=== PATIENT | female | born 1990 | race Caucasian/White ===

== ENCOUNTER 2022-10-17 18:57 | Emergency (ER) | payer BC ==
--- OUTSIDE RECORDS SUMMARY | 2022-10-17 19:00 | XMS REPORT | Continuity of Care Document ---
:1990 Author Organization [facility] t Address [address] [place] [address] [address]. [address] [place] [address] Care Team Providers Name Role Phone Pcp, Patient Does Not Have A Primary Care Physician [id number] THANH GOODMAN Attending Clinician Unavailable Doctor Unassigned, [place] Attending Clinician Unavailable Thanh Goodman MD Attending Clinician Yvette Stallworth PA-C Attending Clinician Unknown, Attending Attending Clinician Unavailable UNKNOWN, ATTENDING Attending Clinician Unavailable Wilfred Whitehead DO Attending Clinician Payers Payer Name Policy Type Policy Number Effective Date Expiration Date S ourcharlene [facility] - [id number] 2014 00:00:00 OUT OF STATE Problems Condition Condition Condition Status Onset Resolution Last Treating Co mments Source Name Details Category Date Date Treatment Clinician Date No known No known Disease Unive rs active active ity of problems problems [facility] [place] Allergies, Adverse Reactions, Alerts Allergy Allergy Status Severity Reaction(s) Onset Inactive Treating Comm ents Source Name Type Date Date Clinician NO KNOWN Drug Active Univers ALLERGIE Class ity of S [facility] [place] Social History Social Habit Start Date Stop Date Quantity Comments Source History SDOH University o f Alcohol Frequency [place] [facility] History SDOH University o f Alcohol Std [place] [facility] Drinks [facility] History SDWY University o f Alcohol Binge [place] [facility] Exposure to Not sure University of SARS-CoV-2 [place] [facility] (event) [facility] Alcohol intake 2021-11-06 2021-11-06 Current drinker Unive rsity of 00:00:00 00:00:00 of alcohol [place] [facility] (finding) [facility] Alcohol Comment 2021-09-19 2021-09-19 occasional Universit y of 00:00:00 00:00:00 [facility] Tobacco use and 2020-11-04 2020-11-04 Smokeless tobacco Un iversity of exposure 00:00:00 00:00:00 non-user [facility] Sex Ass[birth year] Universit y of 00:00:00 00:00:00 [facility] Smoking Status Start Date Stop Date Source Never smoked tobacco [facility] Medications Ordered Filled Start Stop Current Ordering Indication Dosage Frequency Signature Comments Components Source Medication Medication Date Date Medication? Clinician (SIG) Name Name hydrOXYzine 2020-11- No Unive rs 10 mg 12-07 ity of tablet 00:00: 00:00 [place] 00 :00 Medical Branch hydrOXYzine 2020-11- No Unive rs 10 mg 12-07 ity of tablet 00:00: 00:00 [place] 00 :00 [facility] propranoloL 2020-11- No Unive rs 10 mg 12-02 ity of tablet 00:00: 00:00 [place] 00 :00 [facility] propranoloL 2020-2021- No Unive rs 10 mg 12-02 ity of tablet 00:00: 00:00 [place] 00 :00 Medical [facility] fluconazole 2020-2021- No Unive rs 150 mg 11-19 ity of tablet 00:00: 00:00 [place] 00 :00 Medical [facility] fluconazole 2020-2021- No Unive rs 150 mg 11-19 ity of tablet 00:00: 00:00 [place] 00 :00 Medical [facility] clonazePAM 2020-11- No Univer s 0.25 mg 0-03 -06 ity of disintegrat 00:00: 00:00 [place] ing tablet 00 :00 Medical Branch clonazePAM 2020-11- No Univer s 0.25 mg 0-03 -06 ity of disintegrat 00:00: 00:00 [place] ing tablet 00 :00 Medical Branch methylpheni Yes Univer s date HCl 54 9-07 ity of mg 24 hr 00:00: [place] tablet 00 Medical [facility] methylpheni 0 Yes Univer s date HCl 54 9-07 ity of mg 24 hr 00:00: [place] tablet 00 [facility] methylpheni Yes Univer s date HCl 54 07-08 ity of mg 24 hr 00:00: [place] tablet 00 Medical Branch citalopram Yes Univers 40 mg 9- ity of tablet 00:00: [place] [facility] citalopram Yes Univers 40 mg - ity of tablet 00:00: Medical Branch citalopram Yes Univers 40 mg 9- ity of tablet 00:00: [place] 00 [facility] Immunizations Ordered Filled Immunization Date Status Comments Sourc e Immunization Name Name Influenza Virus 2021-08-01 Completed Universit y of Vaccine 00:00:00 [facility] Influenza Virus 2021-08-01 Completed Universit y of Vaccine 00:00:00 [facility] Influenza Virus 2021-08-01 Completed Universit y of Vaccine 00:00:00 [facility] Vital Signs Vital Name Observation Time Observation Value Comments Source Systolic blood 2021-11-06 15:10:00 103 mm[Hg] Univer sity of pressure [facility] Diastolic blood 2021-11-06 15:10:00 67 mm[Hg] Unive rsity of pressure [facility] Heart rate 2021-11-06 15:10:00 82 /min [facility] Body temperature 2021-11-06 15:10:00 36.72 Priscilla [facility] Respiratory rate 2021-11-06 15:10:00 20 /min [facility] Body height 2021-11-06 15:10:00 170.2 cm [facility] Body weight 2021-11-06 15:10:00 157.001 kg [facility] BMI 2021-11-06 15:10:00 54.21 kg/m2 [facility] Procedures Procedure Date / Time Performed Performing Clinician Sour e CONSENT TO CONTACT 2022-06-08 14:49:10 Doctor Unassigned, No Uni versity of [place] FOR VOLUNTARY Name [facility] RESEARCH Encounters Start End Encounter Admission Attending Care Care Encounter Source Date/Time Date/Time Type Type Clinicians Facility Department ID 2022-11-09 2022-11-09 Outpatient THANH WYNNE [facility] [id number] Univers 09:00:00 09:00:00 ity of [facility] 2022-06-08 2022-06-08 Orders Doctor ELMER [id number] [id number] Univers 00:00:00 00:00:00 Only Unassigned, ORI [id number] ity of [place] [facility] [id number] [place] [id number] [facility] 009 Branch 2021-11-06 2021-11-06 Office FishThanh [facility] 1.2.840.114 [id number] Univers 09:00:00 09:41:52 Visit CHAYO [id number] it y of [place] [id number] [facility] [id number] [facility] [address] [place] 2021-11-06 2021-11-06 Outpatient R THANH GOODMAN [facility] [id number] Univers 09:00:00 09:41:52 ity of [facility] 2021-11-06 2021-11-06 Outpatient R THANH GOODMAN [facility] [id number] Univers 09:00:00 09:00:00 ity of [facility] 2021-11-04 2021-11-04 Outpatient R THANH GOODMAN [facility] [id number] Univers 10:00:00 10:00:00 ity of [facility] 2021-09-19 2021-09-19 Outpatient R THANH GOODMAN [facility] [id number] Univers 10:00:00 11:09:01 ity of [facility] 2021-09-19 2021-09-19 Office Thanh Goodman [facility] 1.2.840.114 [id number] Univers 09:48:49 11:09:01 Visit GE[place] [id number] [id number] [id number] V[facility] [address] 2021-09-19 2021-09-19 Outpatient R RAFAT THANH [facility] [id number] Univers 10:00:00 10:00:00 ity of [facility] 2021-09-18 2021-09-18 Telephone FishThanh [facility] [id number] Univers 00:00:00 00:00:00 [place] [id number] it [id number] [id number] [facility] [address] [place] 2021-07-13 2021-07-13 Telephone Basim [facility] 1.2.840.114 [id number] Univers 00:00:00 00:00:00 [facility] [id number] it y of [place] [id number] [place] Don?Blea [id number] [facility] [address] [place] Medical Office [facility] 2021-07-11 2021-07-11 Urgent Yvette Stallworth [facility] 1.2.840.11 [id number] Univers 12:10:10 14:04:37 Care Unknown, [facility] [id number] ity of [place] [id number] [place] Don?Blea [phone] [address] Office [facility] 2021-07-11 2021-07-11 Outpatient R KELLEN, [facility] [id number] Univers 12:20:00 12:20:00 ATTENDING ity [facility] 2021-01-21 2021-01-21 Patient [place] [facility] [id number] Univers 00:00:00 00:00:00 Outreach Wilfred PRIMARY [id number] i ty of [place] [facility] [id number] [facility] [phone] [facility] [address] [place] 2020-12-10 2020-12-10 [facility] Rafat Thanh [facility] 1.2.840.114 [id number] Univers 13:52:19 23:59:00 Encounter [place] [id number] ity of [id number] [id number] [facility] [address] [place] 2020-12-10 2020-12-10 Outpatient R THANH GOODMAN [facility] [id number] Univers 00:00:00 00:00:00 ity of [facility] 2020-11-04 2020-11-04 Outpatient R THANH GOODMAN [facility] [id number] Univers 15:00:00 15:00:00 ity of [facility] 2020-11-04 2020-11-04 Orders Doctor [place] 1.2.840.114 [id number] [facility] 00:00:00 00:00:00 Only Unassigned, ORI [id number] ity of [place] [facility] [id number] [place] [phone] [address] Results Test Description Test Time Test Comments Results Result Comments Source CONSENT TO CONTACT FOR VOLUNTARY RESEARCH 2022-06-08 14:49:1 0 Test Item Value Reference Range Interpretation Comme nts Consent To Contact For Voluntary Research (test code = 4947) Yes [facility]
[2022-10-17] MEDS ORDERED: MORPHINE 4 MG/ML SYR ONE (19:36)
[2022-10-17] MEDS ORDERED: NA CHLORIDE 0.9% 1,000 ML ONE (19:36)
[2022-10-17] MEDS ORDERED: ONDANSETRON 4 MG/2 ML VIAL ONE (19:36)
[2022-10-17 21:15] LABS: Absolute Lymphocytes (CBC) 1.2 K/uL (0.7-4.9); Hematocrit 34.6 % (36.0-45.0); Lymphocytes % 25.4 % (15.3-44.8); MCV 81.1 fL (80-100); MPV 8.1 fL (7.6-11.3); RBC Red Blood Cell Count 4.27 M/uL (3.86-4.86)
[2022-10-17 21:16] LABS: Urine Blood Negative (Negative); Urine Glucose Negative (Negative); Urine Protein Negative (Negative); Urine pH 6.5 (5.0-7.0)
[2022-10-17 21:49] LABS: Albumin 3.2 g/dL (3.4-5.0); Bilirubin Total 1.2 mg/dL (0.2-1.0); Potassium 3.7 mmol/L (3.5-5.1)
--- NOTE | 2022-10-17 21:49 | RAD REPORT ---
EXAM DESCRIPTION: CT - Abdomen Pelvis W Contrast - 10/17/2022 9:36 pm CLINICAL HISTORY: Abdominal pain COMPARISON: none. TECHNIQUE: Computed axial tomography of the abdomen pelvis was obtained. 100 cc Isovue-300 was admin istered intravenously. Oral contrast was not requested which limits evaluation of bowel and appendix All CT scans are performed using dose optimization technique as appropriate and may include automated exposure control or mA/KV adjustment according to patient size. FINDINGS: The liver, pancreas, adrenal and kidneys appear unremarkable. Spleen measures 13 centimeters Postsurgical changes involve the stomach. Normal appendix. No adnexal mass There is no evidence of diverticulitis. Cholelithiasis. Gallbladder wall does not appear thickened IMPRESSION: Cholelithiasis Mild splenomegaly
[2022-10-17] MEDS ORDERED: PIPERACIL/TAZO 3.375 GM VIAL IV ONE (22:09)
[2022-10-17] MEDS ORDERED: NA CHLORIDE 0.9% 100 ML IV ONE (22:09)
--- NOTE | 2022-10-17 22:26 | RAD REPORT ---
EXAM DESCRIPTION: US - Abdomen Exam Limited - 10/17/2022 10:07 pm CLINICAL HISTORY: Abdominal pain. . FINDINGS: The gallbladder wall is not thickened. Multiple gallstones Common bile duct 9 millimeters IMPRESSION: Cholelithiasis without evidence cholecystitis Dilated common bile duct may be secondary to a nonvisualized stone
[2022-10-17 22:30] LABS: SARS-CoV-2 Antigen Rapid Res Negative (Negative)
[2022-10-17] MEDS ORDERED: dexAMETHasone 10 MG/ML VIAL ONE (22:32)
[2022-10-17] MEDS ORDERED: prednisoLONE 15 MG/5 ML OSYR ONE (22:33)
[2022-10-17] MEDS ORDERED: EPINEPHRINE INH 0.5 ML VIAL IH ONE ×2 (22:33→22:34)
--- NOTE | 2022-10-17 22:53 | EDPHYS ---
Physician Documentation [facility] Name: Rebecca Ruiz Age: 32 yrs Sex: Female : 1990 Arrival Date: 10/17/2022 Time: 19:03 Bed 15 Private MD: ED Physician Garrett Posada HPI: 10/17 20:24 This 32 yrs old Female presents to ER via Ambulatory with complaints of Abdominal Pain, kb Back Pain, Nausea. 20:24 The patient presents with abdominal pain in the upper abdomen. Onset: The kb symptoms/episode began/occurred 3 day(s) ago. The symptoms radiate to back. Associated signs and symptoms: Pertinent positives: nausea and vomiting, Pertinent negatives: diarrhea, fever. The symptoms are described as constant. Modifying factors: The symptoms are alleviated by nothing, the symptoms are aggravated by nothing. Severity of pain: At its worst the pain was moderate in the emergency department the pain is unchanged. The patient has not experienced similar symptoms in the past. The patient has not recently seen a physician. Pt reports nausea, vomiting and upper abd pain that started on . States the pain gets worse after eating or drinking anything. Historical: - Allergies: 19:07 No Known Allergies; hb - PMHx: 23:44 Depressive disorder; ADHD; ke1 - Immunization history:: Client reports receiving the 2nd dose of the Covid vaccine. - Social history:: Smoking status: Patient denies any tobacco usage or history of. ROS: 20:23 Constitutional: Negative for fever, chills, and weight loss. kb 20:23 Abdomen/GI: Positive for abdominal pain, nausea and vomiting. 20:23 All other systems are negative. Exam: 20:23 Constitutional: This is a well developed, well nourished patient who is awake, alert, kb and in no acute distress. Head/Face: Normocephalic, atraumatic. ENT: Moist Mucous membranes Cardiovascular: Regular rate and rhythm with a normal S1 and S2. No gallops, murmurs, or rubs. No pulse deficits. Respiratory: Respirations even and unlabored. No increased work of breathing. Talking in full sentences Skin: Warm, dry with normal turgor. Normal color. MS/ Extremity: Pulses equal, no cyanosis. Neurovascular intact. Full, normal range of motion. Neuro: Awake and alert, GCS 15, oriented to person, place, time, and situation. Moves all extremities. Normal gait. Psych: Awake, alert, with orientation to person, place and time. Behavior, mood, and affect are within normal limits. 20:23 Abdomen/GI: Inspection: abdomen appears normal, Bowel sounds: normal, in all quadrants, Palpation: soft, in all quadrants, mild abdominal tenderness, in the right upper quadrant and left upper quadrant. Vital Signs: 19:06 BP 146 / 93; Pulse 92; Resp 18; Temp 98.3; Pulse Ox 100% on R/A; Weight 158.76 kg; hb Height 5 ft. 7 in. (170.18 cm); Pain 6/10; 20:25 Pain 2/10; ke1 21:22 BP 116 / 74; Pulse 64; Resp 19; Pulse Ox 100% ; Pain 0/10; ke1 22:16 BP 129 / 80; Pulse 68; Resp 19; Temp 98.3(O); Pulse Ox 100% ; Pain 0/10; ke1 19:06 Body Mass Index 54.82 (158.76 kg, 170.18 cm) hb MDM: 19:10 Patient medically screened. kb 20:23 Data reviewed: vital signs, nurses notes. Data interpreted: Pulse oximetry: on room air kb is 100 %. Interpretation: normal. 22:46 Counseling: I had a detailed discussion with the patient and/or guardian regarding: the kb historical points, exam findings, and any diagnostic results supporting the discharge/admit diagnosis, lab results, radiology results, the need to transfer to another facility, [facility] does not immediately have the required specialist. 10/17 19:10 Order name: CBC with Diff; Complete Time: 21:17 kb 10/17 19:10 Order name: CMP; Complete Time: 21:51 kb 10/17 19:10 Order name: Lipase; Complete Time: 21:51 kb 10/17 21:16 Order name: Urine Dipstick-Ancillary; Complete Time: 21:17 EDMS 10/17 21:22 Order name: Urine --Ancillary (enter results); Complete Time: 21:59 eb 10/17 22:02 Order name: SARS-COV-2 Antigen Rapid; Complete Time: 22:33 wm 10/17 19:10 Order name: IV Saline Lock; Complete Time: 21:23 kb 10/17 19:16 Order name: US Abdomen Limited; Complete Time: 22:33 kb 10/17 19:43 Order name: CT Abd/Pelvis - IV Contrast Only; Complete Time: 21:50 kb 10/17 23:27 Order name: CREATININE WHOLE BLOOD; Complete Time: 23:35 EDMS 10/17 19:10 Order name: Labs collected and sent; Complete Time: 21:23 kb 10/17 19:10 Order name: Urine Dipstick-Ancillary (obtain specimen); Complete Time: 21:23 kb 10/17 19:10 Order name: Urine Test (obtain specimen); Complete Time: 21:23 kb Administered Medications: 20:10 Drug: Zofran (Ondansetron) 4 mg Route: IVP; Site: left forearm; ke1 20:30 Follow up: Response: Marked relief of symptoms; Nausea is decreased ke1 20:10 Drug: morphine 4 mg Route: IVP; Infused Over: 4 mins; Site: left forearm; ke1 20:25 Follow up: Pain 2 Adult ke1 20:20 Drug: NS 0.9% 1000 ml Route: IV; Rate: 1000 ml; Site: left forearm; ke1 22:14 Drug: Zosyn (piperacillin-tazobactam) 3.375 grams Route: IVPB; Infused Over: 60 mins; ke1 Site: left forearm; Disposition: 10/18 19:40 Co-signature as Attending Physician, Danie Rios MD. rn Disposition Summary: 10/17/22 22:52 Transfer Ordered Transfer Location: [facility] kb Reason: Higher level of care kb Condition: Stable kb Problem: new kb Symptoms: are unchanged kb Accepting Physician: Dr Garcia(10/17/22 23:47) ke1 Diagnosis - Other cholelithiasis without obstruction kb - Other acute pancreatitis without necrosis or infection kb Forms: - Medication Reconciliation Form kb - SBAR form kb Signatures: Dispatcher [employer] EDMS Thalia Kent FNP-C FNP-Danie Cherry MD MD rn Baxter, Heather, RN RN hb Ebrottie, Kouassi, RN RN ke1 Corrections: (The following items were deleted from the chart) 10/17 23:47 22:52 Dr Garcia kb ke1
--- NOTE | 2022-10-17 22:53 | ER ---
Nurse's Notes [facility] Name: Rebecca Ruiz Age: 32 yrs Sex: Female : 1990 Arrival Date: 10/17/2022 Time: 19:03 Bed 15 Private MD: Diagnosis: Other cholelithiasis without obstruction;Other acute pancreatitis without necrosis or infection Presentation: 10/17 19:06 Chief complaint: Upper abdominal pain that radiates to the back and N/V x 3 days. Not hb tolerating fluids. Coronavirus screen: Client presents with at least one sign or symptom that may indicate coronavirus-19. Standard/surgical mask placed on the client. Provider contacted for isolation considerations. Ebola Screen: No symptoms or risks identified at this time. Initial Sepsis Screen: Does the patient meet any 2 criteria? No. Patient's initial sepsis screen is negative. Does the patient have a suspected source of infection? No. Patient's initial sepsis screen is negative. Risk Assessment: Do you want to hurt yourself or someone else? Patient reports no desire to harm self or others. Onset of symptoms was October 15, 2022. 19:06 Method Of Arrival: Ambulatory hb 19:06 Acuity: LANI 3 hb Triage Assessment: 20:00 General: Appears uncomfortable, Behavior is appropriate for age. Pain: Complains of ke1 pain in Upper abdomen Pain radiates to back. GI: Abdomen is round Bowel sounds present X 4 quads. Historical: - Allergies: 19:07 No Known Allergies; hb - PMHx: 23:44 Depressive disorder; ADHD; ke1 - Immunization history:: Client reports receiving the 2nd dose of the Covid vaccine. - Social history:: Smoking status: Patient denies any tobacco usage or history of. Screenin:21 [facility] ED Fall Risk Assessment (Adult) History of falling in the last 3 months, ke1 including since admission No falls in past 3 months (0 pts) Confusion or Disorientation No (0 pts) Intoxicated or Sedated No (0 pts) Impaired Gait No (0 pts) Mobility Assist Device Used No (0 pt) Altered Elimination No (0 pt) Score/Fall Risk Level 0 - 2 = Low Risk. Abuse screen: Denies threats or abuse. Nutritional screening: No deficits noted. Tuberculosis screening: No symptoms or risk factors identified. Fall Risk Fall in past 12 months (25 points). Assessment: 20:20 Reassessment: Unable to draw blood, sluggish blood flow, labs called to draw. ke1 21:24 Reassessment: Patient is alert, oriented x 3, equal unlabored respirations, skin ke1 warm/dry/pink. Patient denies pain at this time. Patient states feeling better. Patient states symptoms have improved. Vital Signs: 19:06 BP 146 / 93; Pulse 92; Resp 18; Temp 98.3; Pulse Ox 100% on R/A; Weight 158.76 kg; hb Height 5 ft. 7 in. (170.18 cm); Pain 6/10; 20:25 Pain 2/10; ke1 21:22 BP 116 / 74; Pulse 64; Resp 19; Pulse Ox 100% ; Pain 0/10; ke1 22:16 BP 129 / 80; Pulse 68; Resp 19; Temp 98.3(O); Pulse Ox 100% ; Pain 0/10; ke1 19:06 Body Mass Index 54.82 (158.76 kg, 170.18 cm) hb ED Course: 19:03 Patient arrived in ED. ja2 19:05 Thalia Kent [facility]C [facility] kb 19:05 Danie Rios MD is Attending Physician. kb 19:07 Triage completed. hb 19:07 Arm band placed on. hb 19:26 Mitchell Castillo, RN is Primary Nurse. ke1 20:00 Inserted saline lock: 22 gauge in left forearm, using aseptic technique. ke1 20:19 Inserted saline lock: 22 gauge in right forearm, using aseptic technique. ke1 20:23 Patient has correct armband on for positive identification. Bed in low position. Call ke1 light in reach. 21:23 CMP Sent. ke1 21:23 Lipase Sent. ke1 21:38 CT Abd/Pelvis - IV Contrast Only In Process Unspecified. EDMS 22:09 US Abdomen Limited In Process Unspecified. EDMS 22:[address] [facility] spoke with Ewelina. wm 22:14 SARS-COV-2 Antigen Rapid Sent. ke1 22:45 Attending Physician role handed off by Danie Rios MD aba 22:45 Garrett Posada MD is Attending Physician. aba 22:55 Pt accepted for transfer by Dorita Kumar, Jose \T\ 2247 per Ewelina Tucker. 23:45 No provider procedures requiring assistance completed. ke1 23:45 Patient transferred, IV remains in place. ke1 Administered Medications: 20:10 Drug: Zofran (Ondansetron) 4 mg Route: IVP; Site: left forearm; ke1 20:30 Follow up: Response: Marked relief of symptoms; Nausea is decreased ke1 20:10 Drug: morphine 4 mg Route: IVP; Infused Over: 4 mins; Site: left forearm; ke1 20:25 Follow up: Pain 2/10 Adult ke1 20:20 Drug: NS 0.9% 1000 ml Route: IV; Rate: 1000 ml; Site: left forearm; ke1 22:14 Drug: Zosyn (piperacillin-tazobactam) 3.375 grams Route: IVPB; Infused Over: 60 mins; ke1 Site: left forearm; Medication: 23:45 VIS not applicable for this client. ke1 Outcome: 22:52 ER care complete, transfer ordered by . kb 23:45 Transferred by ground EMS to [facility]. ke1 23:45 Condition: stable 23:45 Instructed on the need for transfer. 23:47 Patient left the ED. ke1 Signatures: Dispatcher [employer] EDMS Thalia Kent, EXTERMINATOR TERMITE-C EXTERMINATOR TERMITE-Ckb Garrett Posada MD MD cha Baxter, Heather, RN RN Key Duque Yecenia Swain Kouassi, RN RN ke1 Corrections: (The following items were deleted from the chart) 21:24 21:22 Pulse 64bpm; Resp 19bpm; Pulse Ox 100%; Pain 0/10; ke1 ke1
[2022-10-18 00:23] VITALS: TEMP 98.3; O2SAT 100
[2022-10-18 00:26] VITALS: BP 129/80
== END 2022-10-17 23:47 | disposition short-term general hospital (02) ==
LOC: ER 18:57
DX: K80.80 Other cholelithiasis without obstruction (principal); K85.80 Other acute pancreatitis without necrosis or infection; Z20.822 Contact with and (suspected) exposure to COVID-19
CPT/HCPCS: 85025; 36415; 81025; 82565; 81003; 83690; 80053; 74177; 76705; 87811; Q9967; J2543; J7510; J1100; J7030; J2405; 96374; 96375; 99285